=== PATIENT | male | born 1955 | race Caucasian/White ===

== ENCOUNTER → 2024-07-22 | Outpatient (REF) | payer MEDICARE ==
[~2024-07-22] MED LIST: COMBIVENT RESPIM4 GM IH; DALIRESP500 MCG PO; DUO NEB INH; FENOFIBRATE145 MG PO; GLUCOTROL XL10 MG PO; HYDROCODON-ACE1 EAC9 PO; MELATONIN10 M1 PO; METOCLOPRAM5 MG/5 ML PO; METOPROLOL SUCC50 MG PO; MIRTAZAPINE15 MG PO; MONTELUKAST SOD10 MG PO; MOUNJARO10 MG/0.5 SC; PANTOPRAZOLE SO20 MG PO; SIMVASTATIN80 MG PO; SPIRONOLACTONE25 MG PO; SYNTHROID50 MCG PO; TRIAMCINOLONE A15 G2 TOP; TRUSOPT OP; VALIUM10 MG PO; WIXELA 500-501 EACH INH; XALATAN2.5 ML OD; ZESTRIL10 MG PO
== END ==
LOC: NM 11:47
PROVIDERS: ATTEND Internal Medicine Gastroenterology
DX: K80.20 Calculus of gallbladder without cholecystitis without obstruction (principal)
CPT/HCPCS: 78227; A9537

== ENCOUNTER → 2024-09-28 | Outpatient (REF) | payer MEDICARE | LOC: RAD 10:47 | PROVIDERS: ATTEND Internal Medicine Critical Care Medicine | DX: J44.9 Chronic obstructive pulmonary disease, unspecified (principal) | CPT/HCPCS: 71046 ==